=== PATIENT | female | born 1995 | race Caucasian/White ===

== ENCOUNTER 2022-05-15 23:06 | Emergency (ER) | payer OTHER, SELFPAY ==
--- NOTE | ~2022-05-15 | CT_ITS ---
EXAMINATION: CT BRAIN W/O DATE: 05/16/2022 00:17 INDICATION: Headache. Pressure. TECHNIQUE: Computed tomography (CT) of the head was performed without intravenous contrast. The dose- length product was 605.33 mGy-cm. COMPARISON: No prior studies for comparison. FINDINGS: Normal brain parenchymal volume for age. Normal gavin-white differentiation. No acute intrac ranial hemorrhage, infarction, mass or mass effect. Cerebellar tonsils extend to the foramen magnum, although do not meet criteria for Chiari malformation. No ventriculomegaly or midline shift. Midline sagittal images demonstrate a normal corpus callosum, c raniovertebral junction and sella turcica. Basilar cisterns are patent. There is mucosal thickening of the right frontal sinus. IMPRESSION: 1. No acute intracranial abnormality. 2: Mild right frontal sinus disease. Reviewed, dictated and finalized at location A. S [employer]NAGER
[2022-05-15 23:11] VITALS: BP 151/95; PULSE 105; RESP 18; TEMP 36.7; O2SAT 100
--- NOTE | 2022-05-15 23:43 | ED.GENADULT ---
HPI - General Adult General Chief complaint: Headache Stated complaint: headache Time Seen by Provider: 05/15/22 23:08 History of Present Illness HPI narrative: This is a 27-year-old female presenting ED with a chief complaint of a headache. Headache started earlier today while she was out at dinner. She is eating and then had a shot of alcohol. She then developed a headache that started in the front and then radiate to her ears in the back of her head. She describes as a pressure, that is slowly getting worse. It is associated with blurry vision and several episodes of nausea and vomiting. She denies altered mental status, focal neurologic deficits, fever chills, history of cancer or any association with an exertion. Patient does get multiple headaches per month and usually treats them with ibuprofen which she says does not work very well. Related Data Allergies Allergy/AdvReac Type Severity Reaction Status Date / Time No Known Allergies Allergy Verified 05/15/22 23:44 [facility] Past Medical History Medical History (Updated 05/16/22 @ 02:52 by Lele Wu MD) Obesity Surgical History Surgical History (Updated 05/15/22 @ 23:45 by Lele Wu MD) H/O foot surgery H/O: [place] teeth extracted Social History Social History (Updated 05/15/22 @ 23:45 by Lele Wu MD) Social History: Patient drinks alcohol occasionally, denies drugs or tobacco Exam Narrative: APPEARANCE: No apparent distress. Head: atraumatic. EYES: EOMI, SADA NOSE: Atraumatic NECK: Trachea midline RESPIRATORY: No increased rate of breathing CARDIOVASCULAR: RRR, ABDOMINAL: Non-distended MUSCULOSKELETAl: No obvious deformities NEURO: Alert. Cranial nerves 2-12 grossly intact. Sensation light touch, motor function cerebellar function intact for 4 extremities. Gait exam was normal. SKIN:: Warm, dry. Normal color PSYCHIATRIC: Normal affect Course Vital Signs Vital signs: Vital Signs Temperature 98.0 F 05/15/22 23:11 Pulse Rate 105 H 05/15/22 23:11 Respiratory Rate 18 05/15/22 23:11 Blood Pressure 151/95 H 05/15/22 23:11 Pulse Oximetry 100 05/15/22 23:11 Oxygen Delivery Room Air 05/15/22 23:11 Temperature 98.0 F 05/15/22 23:11 Pulse Rate 105 H 05/15/22 23:11 Respiratory Rate 18 05/15/22 23:11 Blood Pressure 151/95 H 05/15/22 23:11 Pulse Oximetry 100 05/15/22 23:11 Oxygen Delivery Room Air 05/15/22 23:11 Medical Decision Making MDM Narrative Medical decision making narrative: DDX includes but is not limited to: simple headache, spontaneous intracranial hemorrhage, Subarachnoid hemorrhage, pseudotumor cerebri Co-morbidities complicating care: morbid obesity External Chart Review: none Hx from independent Sources: sister Discussion of Management: discussed the risks and benefits of a CT scan. Patient understands risk of radiation but would like a CT scan to make sure she is not having a brain bleed. as this headache is completely new in nature compared to her typical headaches, associated with vision changes and vomiting a CT is reasonable but low yield. Independent interpretation of studies: CT head as seen below Dx tests considered but not ordered: no lab work ordered has it would be low yield for headache Shared decision making: discussed admission versus discharge. Procedures: none Interventions: Tylenol, Compazine, Benadryl 27-year-old female presenting for headache. She will be given a migraine cocktail. CT head has been ordered to evaluate for intracranial pathology. CT head showed no acute intracranial abnormality. On re-evaluation she is still complaining of headache. She will be given 30 mg of IM Toradol. Patient notified nursing staff that she would like to go home. Patient will be discharged. Patient's headache is felt to be benign cephalgia and reasonable for outpatient management. Vital Signs Vital Signs: Vital Signs Temper
[2022-05-16] MEDS: diphenhydrAMINE HCl INJ 50 MG/ML VIAL 25 MG IM (00:36)
[2022-05-16] MEDS: PROCHLORPERAZINE EDISYLATE 10 MG/2 ML VIAL IM (00:37)
[2022-05-16] MEDS: ACETAMINOPHEN 500 MG TABLET 1000 MG PO (00:37)
[2022-05-16 00:41] LABS: Influenza A QL RT-PCR Negative (Negative); Influenza B QL RT-PCR Negative (Negative); RSV RNA, RT-PCR Negative (Negative); SARS-CoV-2 RNA PCR Negative
[2022-05-16] MEDS: KETOROLAC 30 MG/ML VIAL (*BKC) IM (02:07)
[2022-05-16 02:52] VITALS: BP 152/87; PULSE 86; RESP 18; O2SAT 97
== END 2022-05-16 02:59 | disposition home or self-care (01) ==
PROVIDERS: Emergency Provider Emergency Medicine
DX: R51.9 Headache, unspecified (principal); Z20.822 Contact with and (suspected) exposure to COVID-19; E66.9 Obesity, unspecified; Z68.43 Body mass index [BMI] 50.0-59.9, adult
CPT/HCPCS: 70450; 81025; 87637; 96372; 99284; A9270; J0780; J1200; J1885